=== PATIENT | male | born 1965 | race Caucasian/White ===

== ENCOUNTER 2018-08-13 02:14 | Day surgery (SDC) | payer OTHER ==
[~2018-08-13] VITALS: Ht 175.3 cm; Wt 72.1 kg
[~2018-08-13 02:14] MED LIST: CALC-661 PO; CHOL10005 PO; IBUP-136 PO; MAGN250T5 PO; POTA99TA2 PO; VITA-175 PO; [UNRECOGNIZED DRUG - CODE] MC
[2018-08-13 07:34] VITALS: BP 123/83
[2018-08-13] MEDS ORDERED: NORMOSOL R SOLN(*) 1000 ML BAG 1,000 ML IV PRN (08:15)
[2018-08-13 10:01] VITALS: BP 97/67
[2018-08-13 10:30] VITALS: BP 96/65
[2018-08-13 10:59] VITALS: BP 96/67
[2018-08-13 11:00] VITALS: BP 98/61
[2018-08-13] MEDS ORDERED: PROPOFOL EMUL(*) 10MG/ML 20 ML 60 ML ONE (12:53)
[2018-08-13] MEDS ORDERED: LIDOCAINE/SOD BICARB 8.4% SYR ID ONE (18:15)
== END 2018-08-13 11:15 | disposition home or self-care (01) ==
LOC: OR 02:14
PROVIDERS: ATTEND Family Medicine
DX: Z12.11 Encounter for screening for malignant neoplasm of colon (principal); Z87.891 Personal history of nicotine dependence
CPT/HCPCS: 00812; 45378; J2704

== ENCOUNTER 2018-10-15 00:50 | Day surgery (SDC) | payer OTHER ==
[2018-10-15] VITALS (12 sets, daily range): BP systolic 99–125; BP diastolic 60–86
[~2018-10-15] VITALS: Ht 175.3 cm; Wt 75.3 kg
[2018-10-15] MEDS: NORMOSOL R SOLN(*) 1000 ML BAG 1,000 ML IV PRN ×3 (05:58→15:20)
[2018-10-15] MEDS ORDERED: MIDAZOLAM 2 MG/2 ML VIAL IVP PRN (06:30)
[2018-10-15] MEDS ORDERED: LIDOCAINE/SOD BICARB 8.4% SYR ID ONE (06:30)
[2018-10-15] MEDS ORDERED: FAMOTIDINE 20 MG TAB PO ONE (06:30)
[2018-10-15] MEDS ORDERED: BUPIVACAINE/EPI 0.5% 50ML VIAL INFIL ONE (06:51)
[2018-10-15] MEDS ORDERED: ceFAZolin(*) 2GM/D5W 50ML 50 ML IVPB ONE (07:00)
[2018-10-15] MEDS ORDERED: fentaNYL CITR 250 MCG/5 ML AMP ONE (07:04)
[2018-10-15] MEDS ORDERED: LIDOCAINE 2% IV 100 MG/5ML SYR ONE (07:05)
[2018-10-15] MEDS ORDERED: PROPOFOL EMUL(*) 10MG/ML 20 ML 20 ML ONE (07:05)
[2018-10-15] MEDS ORDERED: DEXAMETHASONE SOD 4 MG/ML VIAL ONE (07:20)
[2018-10-15] MEDS ORDERED: ONDANSETRON 4 MG/2 ML VIAL ONE (07:22)
[2018-10-15] MEDS ORDERED: KETAMINE HCL 200 MG/20 ML MDV ONE (07:23)
[2018-10-15] MEDS ORDERED: fentaNYL CITR 100 MCG/2 ML AMP ONE (08:07)
[2018-10-15] MEDS ORDERED: SUGAMMADEX SOD 200 MG/2 ML SDV ONE (08:10)
[2018-10-15] MEDS ORDERED: TRAM-420 PO ×2 (08:58→10:49)
[2018-10-15] MEDS ORDERED: PROMETHAZINE 25 MG/ML 1 ML AMP ONE (09:33)
--- NOTE | 2018-10-15 10:26 | Short(Outpt) Discharge Summary ---
Discharge Summary Reason for Hosp/Final Diag: (1) Inguinal hernia, left Hospital Course & Plan: 53 yo m presented for lap left ing hernia repair with mesh. he tolerated the procedure well and there were no complications. he will be discharged home when criteria met. Discharge Instructions Home Meds Active Scripts Tramadol Hcl (TRAMADOL HCL) 50 Mg Tablet, 50 MG PO Q4H PRN for PAIN, #20 TAB Prov:JUSTIN BASHIR 10/15/18 Reported Medications Ibuprofen (IBUPROFEN) 200 Mg Capsule, 2 CAP PO PRN, CAPSULE 07/23/18 Vitamin B Complex (B COMPLEX) 1 Each Tablet, 1 EACH PO QDAY 07/23/18 Potassium Gluconate (POTASSIUM GLUCONATE) 99 Mg Tablet, 400 MG PO QDAY 07/23/18 Calcium Carbonate (CALCIUM CARBONATE) 200 Mg Tab.chew, 300 MG PO QDAY, TAB.CHEW 07/23/18 Magnesium Oxide (MAGNESIUM OXIDE) 250 Mg Tablet, 250 MG PO 07/23/18 Cholecalciferol (Vitamin D3) (VITAMIN D3) 1,000 Unit Tablet, 5000 UNIT PO, TAB 07/23/18 Diet: Regular Activity: No Heavy Lifting Special Instructions: no lifting more than 15 lbs for 3 wks take stool softener while taking pain meds ok to shower tomorrow please call for 2 wk follow up appt ([phone]) JUSTIN BASHIR Oct 15, 2018 10:26
--- NOTE | 2018-10-15 10:30 | Post Operative Progress Note ---
Post Operative Progress Note Date: Oct 15, 2018 Time: 10:26 Surgeon: dr. jarvis epperson #[id number] Slice Plug Cutter Operator Helper: none Anesthesia: gen, local dr. amanda Pre-Op Diagnosis: left ing hernia Post-Op Diagnosis: same Findings: indirect left ing hernia Procedure(s): lap left ing hernia with mesh Specimen Removed:(May be N/A): none Complications: none Fluids: iv crystalloid Estimated Blood Loss: minimal Date OP Note Dictated: Oct 15, 2018 Time OP Note Dictated: 10:27 JUSTIN EPPERSON Oct 15, 2018 10:30
--- NOTE | 2018-10-15 11:27 | OPERATIVE REPORT 1 ---
EVENT DATE: October 15, 2018 SURGEON: Alfredito Garza MD ANESTHESIOLOGIST: Kayode Tejada M.D. ANESTHESIA: General with local. DIRECTOR PEDIATRIC: None. PREOPERATIVE DIAGNOSIS Left inguinal hernia. POSTOPERATIVE DIAGNOSIS Left inguinal hernia. PROCEDURE PERFORMED Laparoscopic left inguinal hernia repair with mesh. FLUIDS IV crystalloids. ESTIMATED BLOOD LOSS Minimal. SPECIMENS None. COMPLICATIONS None. INDICATIONS This is a 53-year-old male with a left inguinal hernia that is bothersome to him. Risks and benefits of the procedure were explained and consent was signed. DESCRIPTION OF PROCEDURE Patient was taken to the operating room, placed in the supine position and general anesthesia was administered per the anesthesia team. The patient was prepped and draped in normal sterile fashion. Local analgesia was injected to the dermis above the umbilicus and a 12 mm vertical incision was made. The umbilical stump was grasped and elevated. Veress needle was inserted. Pneumoperitoneum was achieved. Veress needle was removed. 5 mm port was advanced. After injecting local analgesia under direct, a 5 mm right sided port was placed as well as a 5 mm left sided port and the supraumbilical port was exchanged for a 12 mm port. I inspected the abdomen. There was no injury upon entry. There was no significant hernia on the right. There was an indirect left inguinal hernia. Peritoneal flap was created with LigaSure. This was taken down to Fam's ligament. The hernia sac was reduced and this was taken down below the level of the ileopubic tract. Care was taken to protect the inferior epigastric vessels as well as the cord structures and then placed a left sided ProGrip 15 x 10 cm mesh over the hernia defect and made it to lie flat. The peritoneal flap was reapproximated with a running absorbable V-Loc suture with the Endo Stitch device. Cap lock was placed on the left. Hemostasis was assured. Fascia closure device with an 0 Vicryl stitch was used to close the fascia of the supraumbilical port side. Hemostasis was assured. Left sided port was removed. Pneumoperitoneum was relieved. Final port was removed. All skin incisions were closed with 4-0 Monocryl subcuticular stitches. More local analgesia was injected. Appropriate dressings were applied. The patient tolerated the procedure well. There were no complications. [facility]
[2018-10-15] MEDS ORDERED: traMADol 50 MG TAB ONE (11:36)
== END 2018-10-15 10:02 | disposition home or self-care (01) ==
LOC: OR 00:50
PROVIDERS: ATTEND Surgery
DX: K40.90 Unilateral inguinal hernia, without obstruction or gangrene, not specified as recurrent (principal)
CPT/HCPCS: 49650; C1781; J1100; J2001; J2405; J2550; J2704; J3010; J3490; J0690